=== PATIENT | female | born 1950 | race Caucasian/White ===

== ENCOUNTER 2016-07-20 00:24 | Emergency (ER) | payer BC ==
[2016-07-20] MEDS ORDERED: ACETAMINOPHEN 325 MG TAB ONE (01:17)
[2016-07-20] MEDS ORDERED: TDaP 0.5 ML VIAL IM.VACC ONE (01:18)
[2016-07-20] MEDS ORDERED: SILVER SULF 1% CR 50 GM TOPICAL ONE (01:18)
== END 2016-07-20 02:19 | disposition home or self-care (01) ==
LOC: ER 00:24
DX: R51 Headache (principal); T22.211A Burn of second degree of right forearm, initial encounter; T23.251A Burn of second degree of right palm, initial encounter; T31.0 Burns involving less than 10% of body surface; Z23 Encounter for immunization

== ENCOUNTER 2016-08-10 06:23 | Inpatient (IN) | payer BC, MEDICARE ==
[2016-07-20 14:05] VITALS: BP_SYST 118; TEMP 96.8; BMI 36.2
[2016-08-10] VITALS (24 sets, daily range): BP systolic 105–145; RESP 16–25; TEMP 97.2–99; Ht 167.6 cm; Wt 101.6 kg
[~2016-08-10] VITALS: Ht 167.6 cm; Wt 101.6 kg
[2016-08-10] MEDS ORDERED: ROPIVACAINE 0.5% 139 MG, EPINEPHrine 1:1,000 0.2 MG, KETOROLAC INJ 30 MG, MORPHINE 10 MG SUBQ ONE ×4 (06:45)
[2016-08-10] MEDS ORDERED: CEFAZOLIN 2,000 MG in SODIUM CHLORIDE 0.9% 100 ML IV ONE (06:45)
[2016-08-10] MEDS ORDERED: MORPHINE SUBQ ONE ×3 (07:25)
[2016-08-10] MEDS ORDERED: EPINEPHRINE SUBQ ONE ×3 (07:25)
[2016-08-10] MEDS ORDERED: LACT RINGERS 1,000 ML IV SCH ×2 (07:25→10:15)
[2016-08-10] MEDS ORDERED: ROPIVACAINE SUBQ ONE ×3 (07:25)
[2016-08-10] MEDS ORDERED: GLYCOPYRROLATE 0.2 MG/ML VIAL IV ONE ×2 (07:25→10:33)
[2016-08-10] MEDS ORDERED: LIDOCAINE 1% BUFFERED 1 ML SYR INTRADERM PRN (07:25)
[2016-08-10] MEDS ORDERED: MIDAZOLAM 2 MG/2 ML INJ IV ONE ×2 (07:25→08:10)
[2016-08-10] MEDS ORDERED: ONDANSETRON 4 MG VIAL IV PRN ×2 (08:40→10:15)
[2016-08-10] MEDS ORDERED: MORPHINE 4 MG/ML SYR IV PRN ×2 (08:40→10:15)
[2016-08-10] MEDS ORDERED: DILAUDID 1 MG/ML AMP IV PRN (08:40)
[2016-08-10] MEDS ORDERED: OXYCODONE 5 MG TAB PO PRN (08:40)
[2016-08-10] MEDS ORDERED: MEPERIDINE 25 MG/ML IV PRN (08:40)
[2016-08-10] MEDS ORDERED: MORPHINE 2 MG/ML SYR IV PRN ×2 (08:40→10:15)
[2016-08-10] MEDS ORDERED: ACETAMINOPHEN 325 MG TAB PO PRN (10:15)
[2016-08-10] MEDS ORDERED: DIPHENHYDRAMINE 25 MG CAP PO PRN (10:15)
[2016-08-10] MEDS ORDERED: TEMAZEPAM 15 MG CAP PO PRN (10:15)
[2016-08-10] MEDS ORDERED: MEPERIDINE 25 MG/ML IV ONE (10:33)
[2016-08-10] MEDS ORDERED: PROPOFOL 20 ML VIAL IV ONE (10:33)
[2016-08-10] MEDS ORDERED: FENTANYL 100 MCG/2 ML AMP IV ONE (10:33)
[2016-08-10] MEDS ORDERED: ROCURONIUM 50 MG VIAL IV ONE (10:33)
[2016-08-10] MEDS ORDERED: NEOSTIGMINE 10 MG/10 ML VIAL IV ONE (10:33)
[2016-08-10] MEDS ORDERED: BUPIVACAINE 0.5% PF 30 ML EPIDURAL ONE (10:38)
[2016-08-10] MEDS ORDERED: BUPIVACAINE 0.5% PF 10ML EPIDURAL ONE (10:38)
[2016-08-10] MEDS: DOCUSATE SOD 100 MG CAP PO SCH ×2 (10:47→20:46)
[2016-08-10] MEDS: MAG HYDROX 30 ML UDC PO SCH (10:48)
[2016-08-10] MEDS ORDERED: BACITRACIN 50,000 UNITS INJ IRRIG ONE (13:50)
[2016-08-10] MEDS: CEFAZOLIN 2,000 MG in SODIUM CHLORIDE 0.9% 100 ML IV SCH ×2 (13:53→20:45)
[2016-08-10] MEDS: POLYETHYLENE GLYCOL 17 GM PACKET PO SCH (15:42)
[2016-08-10] MEDS: SENNA 8.6 MG TAB PO SCH ×2 (15:42→20:46)
[2016-08-10] MEDS ORDERED: NITROGLYCERIN SL 0.4 MG TAB SL PRN (18:20)
[2016-08-11] VITALS (7 sets, daily range): BP systolic 116–136; RESP 16–18; TEMP 98.9–99.8
[2016-08-11] MEDS: CEFAZOLIN 2,000 MG in SODIUM CHLORIDE 0.9% 100 ML IV SCH ×2 (01:32→08:08)
[2016-08-11] MEDS: FONDAPARINUX 2.5 MG SYR SUBQ SCH (05:55)
[2016-08-11] MEDS: MAG HYDROX 30 ML UDC PO SCH (08:08)
[2016-08-11] MEDS: POLYETHYLENE GLYCOL 17 GM PACKET PO SCH (08:08)
[2016-08-11] MEDS: METOPROLOL XL 25 MG TAB PO SCH (08:09)
[2016-08-11] MEDS: DOCUSATE SOD 100 MG CAP PO SCH ×2 (08:09→21:15)
[2016-08-11] MEDS: LEVOTHYROXINE 0.112 MG TAB PO SCH (08:09)
[2016-08-11] MEDS: SENNA 8.6 MG TAB PO SCH ×2 (08:09→21:15)
[2016-08-11] MEDS: BUPROPION XL 150 MG TAB PO SCH (08:09)
[2016-08-11] MEDS ORDERED: FLEET ENEMA 132 ML BTL RECTAL PRN (14:20)
[2016-08-11] MEDS ORDERED: BISACODYL 10 MG SUPP RECTAL PRN (14:20)
[2016-08-12 02:11] VITALS: BP_SYST 145; RESP 16; TEMP 100.3
[2016-08-12] MEDS: FONDAPARINUX 2.5 MG SYR SUBQ SCH (06:19)
[2016-08-12 08:19] VITALS: BP_SYST 142; RESP 20; TEMP 98.7
[2016-08-12] MEDS: POLYETHYLENE GLYCOL 17 GM PACKET PO SCH (09:28)
[2016-08-12] MEDS: SENNA 8.6 MG TAB PO SCH ×2 (09:28→20:00)
[2016-08-12] MEDS: DOCUSATE SOD 100 MG CAP PO SCH ×2 (09:28→20:00)
[2016-08-12] MEDS: LEVOTHYROXINE 0.112 MG TAB PO SCH (09:28)
[2016-08-12] MEDS: METOPROLOL XL 25 MG TAB PO SCH (09:28)
[2016-08-12] MEDS: BUPROPION XL 150 MG TAB PO SCH (09:28)
[2016-08-12] MEDS: MAG HYDROX 30 ML UDC PO SCH (09:28)
[2016-08-12 11:00] VITALS: BP_SYST 125; RESP 18; TEMP 98.7
[2016-08-12 15:00] VITALS: BP_SYST 151; RESP 18; TEMP 99.2
[2016-08-12 19:05] VITALS: BP_SYST 131; RESP 16; TEMP 98.8
[2016-08-12 23:03] VITALS: BP_SYST 137; RESP 16; TEMP 99.9
[2016-08-13 01:33] VITALS: BP_SYST 132; RESP 16; TEMP 99.7
[2016-08-13 07:09] VITALS: BP_SYST 148; RESP 20; TEMP 99.2
[2016-08-13] MEDS: FONDAPARINUX 2.5 MG SYR SUBQ SCH (07:09)
[2016-08-13] MEDS: SENNA 8.6 MG TAB PO SCH (09:00)
[2016-08-13] MEDS: MAG HYDROX 30 ML UDC PO SCH (09:00)
[2016-08-13] MEDS: POLYETHYLENE GLYCOL 17 GM PACKET PO SCH (09:00)
[2016-08-13] MEDS: DOCUSATE SOD 100 MG CAP PO SCH (09:00)
[2016-08-13] MEDS: METOPROLOL XL 25 MG TAB PO SCH (09:28)
[2016-08-13] MEDS: BUPROPION XL 150 MG TAB PO SCH (09:28)
[2016-08-13] MEDS: LEVOTHYROXINE 0.112 MG TAB PO SCH (09:28)
[2016-08-13 11:24] VITALS: BP_SYST 123; RESP 18; TEMP 98.7
[2016-08-13 15:25] VITALS: BP_SYST 123; RESP 18; TEMP 98.7
[2016-08-13 15:31] VITALS: BP_SYST 123; RESP 18; TEMP 98.7
[2016-08-13 15:46] VITALS: BP_SYST 124; RESP 16; TEMP 99
== END 2016-08-13 16:37 | DRG 470 ==
LOC: SDS 06:23 → ENPENDDIS 06:23 → 2NO 10:41
PROVIDERS: ADMIT Internal Medicine; ATTEND Internal Medicine
PROC: 3E0T3CZ (ICD-10-PCS; 2016-08-10)
PROC: 0SRC0J9 Replacement of Right Knee Joint with Synthetic Substitute, Cemented, Open Approach (ICD-10-PCS; principal; 2016-08-10 08:04)
DX: M17.11 Unilateral primary osteoarthritis, right knee (principal); I10 Essential (primary) hypertension; Z79.82 Long term (current) use of aspirin; E78.00 Pure hypercholesterolemia, unspecified; E03.9 Hypothyroidism, unspecified; G47.30 Sleep apnea, unspecified; I25.10 Atherosclerotic heart disease of native coronary artery without angina pectoris; I25.2 Old myocardial infarction; F41.9 Anxiety disorder, unspecified; J30.9 Allergic rhinitis, unspecified
CPT/HCPCS: 80048; 82553; 84484; 85014; 85018; 85025; 86850; 86900; 86901; 93005; 94762; 94799